=== PATIENT | female | born 1985 | race Caucasian/White ===

== ENCOUNTER 2018-05-20 14:05 | Emergency (ER) | payer BC, MEDICAID ==
[~2018-05-20] VITALS: Ht 167.6 cm; Wt 90.0 kg
[2018-05-20] MEDS ORDERED: ACETAMINOPHEN 325MG TABLET PO STA (15:00)
[2018-05-20] MEDS ORDERED: SODIUM CHLORIDE 0.9% 1,000 ML IV ONE (15:00)
[2018-05-20] MEDS ORDERED: DEXAMETHASONE 10 MG/ML VIAL IV ONE (15:00)
[2018-05-20] MEDS ORDERED: KETOROLAC 30MG/ML VIAL IV ONE (15:15)
[2018-05-20] MEDS ORDERED: CEFTRIAXONE 1 G PREMIX 50 ML IV ONE (15:15)
[2018-05-20 18:01] VITALS: BP 134/72
== END 2018-05-20 18:20 | disposition home or self-care (01) ==
LOC: ER 14:05
DX: J03.90 Acute tonsillitis, unspecified (principal); R03.0 Elevated blood-pressure reading, without diagnosis of hypertension
CPT/HCPCS: 87070; 87430; 96365; 96366; 96375; 99283; J0696; J1100; J1885; J7030

== ENCOUNTER 2018-08-22 17:28 | Emergency (ER) | payer SELFPAY ==
[~2018-08-22] VITALS: Ht 160 cm; Wt 91.0 kg
[2018-08-22 23:30] VITALS: BP 147/75
== END 2018-08-22 23:30 | disposition home or self-care (01) ==
LOC: ER 17:28
DX: S20.01XA Contusion of right breast, initial encounter (principal); F17.200 Nicotine dependence, unspecified, uncomplicated; X58.XXXA Exposure to other specified factors, initial encounter; Y93.89 Activity, other specified; Y92.89 Other specified places as the place of occurrence of the external cause; Y99.8 Other external cause status
CPT/HCPCS: 71045; 81025; 93005; 99283

== ENCOUNTER 2021-10-11 12:33 | Inpatient (IN) | payer MEDICARE ==
[~2021-10-11] VITALS: Ht 160 cm; Wt 97.5 kg
[~2021-10-11 12:33] MED LIST: ETOMIDATE 2MG/ML 10ML VIAL IV ONE; SODIUM CHLORIDE 0.9% 10ML VIAL ONE; VECURONIUM BROMIDE 10 MG/VIAL IV ONE
[2021-10-11] MEDS ORDERED: CEFTRIAXONE 2 G PREMIX 50 ML IV ONE (13:15)
[2021-10-11] MEDS ORDERED: METRONIDAZOLE 500 MG PREMIX 100 ML IV ONE (13:15)
[2021-10-11 13:24] LABS: BASOPHILS % 0.3 % (0.0-2.0); EOSINOPHILS % 0.5 % (0.0-5.0); HEMATOCRIT. 40.2 % (36.0-48.0); HEMOGLOBIN. 13.1 g/dL (12.0-16.0); LYMPHOCYTES % 12.2 % (20.0-50.0); MEAN CORPUSCULAR HEMOGLOBIN 27.6 pg (28.0-32.0); MEAN CORPUSCULAR VOLUME 84.7 fL (81.0-99.0); MEAN PLATELET VOLUME 8.9 fl (7.4-10.4); MONOCYTES % 6.7 % (2.0-8.0); NEUTROPHILS % 80.3 % (40.0-76.0); PLATELET 246 x1000/uL (130-400); RED BLOOD CELL COUNT 4.74 mill/uL (4.2-5.4)
[2021-10-11 13:26] LABS: CLARITY URINE CLEAR (CLEAR); COLOR URINE YELLOW (YELLOW); KETONES URINE NEGATIVE (NEGATIVE); LEUKOCYTE ESTERASE URINE 1+ (NEGATIVE); NITRITE URINE NEGATIVE (NEGATIVE); OCCULT BLOOD URINE NEGATIVE (NEGATIVE); PH URINE 5.5 (4.5-8.0); PROTEIN URINE TRACE (NEGATIVE)
[2021-10-11] MEDS ORDERED: CEFTRIAXONE 2 G in DEXTROSE 5% WATER 50 ML IV NR (13:30)
[2021-10-11 13:33] LABS: CHLORIDE 105 mEq/L (98-107)
[2021-10-11] MEDS ORDERED: MORPHINE SULFATE 4 MG/ML CPJ (NOT FOR IM USE) IV ONE (13:45)
[2021-10-11] MEDS ORDERED: ONDANSETRON HCL 4MG/2ML INJ IV ONE (13:45)
[2021-10-11] MEDS ORDERED: IOHEXOL-300 100 ML BOTTLE ONE (13:58)
[2021-10-11] MEDS ORDERED: PROPOFOL 10MG/ML 100ML 100 ML IV ONE ×2 (15:00→15:45)
[2021-10-11] MEDS ORDERED: SUCCINYLCHOLINE CHLORIDE 200MG/10ML IV ONE (15:00)
[2021-10-11] MEDS ORDERED: DEXAMETHASONE 10 MG/ML VIAL IV ONE (15:00)
[2021-10-11] MEDS ORDERED: ETOMIDATE 2MG/ML 10ML VIAL IV ONE (15:00)
[2021-10-11] MEDS ORDERED: MIDAZOLAM HCL 100 MG in DEXT 5% WATER 80 ML IV ONE (15:45)
[2021-10-11] MEDS ORDERED: FENTANYL 2500MCG/250ML PMX 250 ML IV PRN ×2 (17:15)
[2021-10-11] MEDS: MIDAZOLAM 100MG/100ML PMX 100 ML IV PRN (19:23)
[2021-10-11] MEDS ORDERED: DEXAMETHASONE 10 MG/ML VIAL IV NR (20:30)
[2021-10-11] MEDS ORDERED: CEFTRIAXONE 2 G in DEXTROSE 5% WATER 50 ML IV SCH (21:00)
[2021-10-11] MEDS: METRONIDAZOLE 500 MG PREMIX 100 ML IV SCH (21:26)
[2021-10-11] MEDS ORDERED: DEXT 5%/0.45% NACL 1000ML 1,000 ML IV ONE (23:15)
[2021-10-12] VITALS (21 sets, daily range): BP systolic 100–145; BP diastolic 49–88
[2021-10-12] MEDS ORDERED: NOREPINEPHRINE 8MG/250ML PMX 250 ML IV NR (00:23)
[2021-10-12] MEDS: MIDAZOLAM 100MG/100ML PMX 100 ML IV PRN (00:39)
[2021-10-12 05:55] LABS: BG BASE EXCESS -2.6 mmol/L (-2.0-2.0); BG CARBOXYHEMOGLOBIN 0.2 % (0.5-1.5); BG DEOXYHEMOGLOBIN 1.7 % (0.0-5.0); BG FRACTION INSPIRED OXYGEN 40; BG HCO3 ACT 20.9 mmol/L (22.0-26.0); BG METHEMOGLOBIN 0.3 % (0.0-1.5); BG OXYGEN SATURATION 98.3 % (92.0-98.5); BG OXYHEMOGLOBIN 97.8 % (94.0-97.0); BG PCO2 32.5 mmHg (35.0-45.0); BG PH 7.426 (7.350-7.450); BG SAMPLE SITE RIGHT RADIAL; BG TOTAL HEMOGLOBIN 13.5 g/dL (12.0-18.0); BG VENT MODE VENT - AC
[2021-10-12] MEDS: METRONIDAZOLE 500 MG PREMIX 100 ML IV SCH (06:05)
[2021-10-12 06:06] LABS: MEAN CORPUSCULAR HEMOGLOBIN 27.9 pg (28.0-32.0); MEAN CORPUSCULAR VOLUME 83.4 fL (81.0-99.0); MEAN PLATELET VOLUME 9.1 fl (7.4-10.4); PLATELET 312 x1000/uL (130-400); RED BLOOD CELL COUNT 4.68 mill/uL (4.2-5.4); RED CELL DISTRIBUTION WIDTH 15.7 % (11.6-14.6)
[2021-10-12 06:16] LABS: CHLORIDE 104 mEq/L (98-107)
[2021-10-12 06:29] LABS: PLATELET ESTIMATE NORMAL
[2021-10-12] MEDS ORDERED: FENTANYL 2500MCG/250ML PMX 250 ML IV PRN (11:30)
[2021-10-12] MEDS ORDERED: PROPOFOL 10MG/ML 100ML 100 ML IV PRN (12:00)
[2021-10-12] MEDS ORDERED: DIPHENHYDRAMINE 50MG/ML VIAL IV PRN (12:15)
[2021-10-12] MEDS ORDERED: CLONIDINE 0.1MG TABLET PO PRN (12:15)
[2021-10-12] MEDS ORDERED: ONDANSETRON HCL 4MG/2ML INJ IV PRN (12:15)
[2021-10-12] MEDS ORDERED: ACETAMINOPHEN 325MG TABLET PO PRN (12:15)
[2021-10-12] MEDS ORDERED: METRONIDAZOLE 500 MG PREMIX 100 ML IV SCH (14:00)
[2021-10-12] MEDS: PROPOFOL 10MG/ML 100ML 100 ML IV PRN (14:53)
[2021-10-12] MEDS: DEXAMETHASONE 10 MG/ML VIAL IV SCH ×2 (15:10→17:53)
[2021-10-12] MEDS: SODIUM CHLORIDE 0.9% 1,000 ML IV SCH (15:11)
[2021-10-12] MEDS: ENOXAPARIN 40MG/0.4ML SYR SUBCUT SCH (15:12)
[2021-10-12] MEDS: AMPICILLIN SOD/SULBACTAM NA 3 G in SODIUM CHLORIDE 0.9% 100 ML IV SCH ×2 (16:12→20:47)
[2021-10-12] MEDS: IPRATROPIUM/ALBUTEROL 0.5-3(2.5)MG/3ML NEB HHN SCH (20:17)
[2021-10-12] MEDS: FENTANYL 2500MCG/250ML PMX 250 ML IV PRN (23:33)
[2021-10-13] VITALS (45 sets, daily range): BP systolic 94–153; BP diastolic 35–103
[2021-10-13] MEDS: DEXAMETHASONE 10 MG/ML VIAL IV SCH ×5 (00:29→23:59)
[2021-10-13] MEDS: PROPOFOL 10MG/ML 100ML 100 ML IV PRN ×2 (01:13→17:07)
[2021-10-13] MEDS: IPRATROPIUM/ALBUTEROL 0.5-3(2.5)MG/3ML NEB HHN SCH ×4 (02:14→19:43)
[2021-10-13] MEDS: AMPICILLIN SOD/SULBACTAM NA 3 G in SODIUM CHLORIDE 0.9% 100 ML IV SCH ×4 (02:59→23:58)
[2021-10-13] MEDS: SODIUM CHLORIDE 0.9% 1,000 ML IV SCH ×3 (05:09→20:07)
[2021-10-13 06:21] LABS: BASOPHILS % 0.1 % (0.0-2.0); HEMATOCRIT. 34.8 % (36.0-48.0); HEMOGLOBIN. 11.5 g/dL (12.0-16.0); LYMPHOCYTES % 8.6 % (20.0-50.0); MEAN CORPUSCULAR HEMOGLOBIN 28.3 pg (28.0-32.0); MEAN CORPUSCULAR VOLUME 85.5 fL (81.0-99.0); MEAN PLATELET VOLUME 9.4 fl (7.4-10.4); MONOCYTES % 2.7 % (2.0-8.0); NEUTROPHILS % 88.6 % (40.0-76.0); PLATELET 240 x1000/uL (130-400); RED BLOOD CELL COUNT 4.06 mill/uL (4.2-5.4); RED CELL DISTRIBUTION WIDTH 16.1 % (11.6-14.6)
[2021-10-13 06:37] LABS: CHLORIDE 106 mEq/L (98-107)
[2021-10-13 07:28] LABS: BG BASE EXCESS 5.2 mmol/L (-2.0-2.0); BG CARBOXYHEMOGLOBIN 0.3 % (0.5-1.5); BG DEOXYHEMOGLOBIN 4.2 % (0.0-5.0); BG HCO3 ACT 30.4 mmol/L (22.0-26.0); BG METHEMOGLOBIN 0.1 % (0.0-1.5); BG OXYGEN SATURATION 95.8 % (92.0-98.5); BG OXYHEMOGLOBIN 95.4 % (94.0-97.0); BG PCO2 47.1 mmHg (35.0-45.0); BG PH 7.427 (7.350-7.450); BG PO2 80.4 mmHg (75.0-100.0); BG SAMPLE SITE RIGHT RADIAL; BG TOTAL HEMOGLOBIN 11.7 g/dL (12.0-18.0); BG VENT MODE VENT - AC
[2021-10-13] MEDS: PANTOPRAZOLE SODIUM 40 MG/VIAL IV SCH (09:22)
[2021-10-13] MEDS: ENOXAPARIN 40MG/0.4ML SYR SUBCUT SCH (13:21)
[2021-10-14] VITALS (37 sets, daily range): BP systolic 82–145; BP diastolic 45–76
[2021-10-14] MEDS: ENOXAPARIN 30MG/0.3ML SYR SUBCUT SCH ×2 (01:03→13:55)
[2021-10-14] MEDS: IPRATROPIUM/ALBUTEROL 0.5-3(2.5)MG/3ML NEB HHN SCH ×4 (01:23→20:00)
[2021-10-14] MEDS: PROPOFOL 10MG/ML 100ML 100 ML IV PRN ×2 (02:24→15:45)
[2021-10-14] MEDS: DEXAMETHASONE 10 MG/ML VIAL IV SCH (06:17)
[2021-10-14] MEDS: AMPICILLIN SOD/SULBACTAM NA 3 G in SODIUM CHLORIDE 0.9% 100 ML IV SCH ×3 (06:17→17:24)
[2021-10-14 06:44] LABS: CHLORIDE 108 mEq/L (98-107)
[2021-10-14 07:28] LABS: BASOPHILS % 0.1 % (0.0-2.0); EOSINOPHILS % 0.1 % (0.0-5.0); HEMATOCRIT. 31.4 % (36.0-48.0); HEMOGLOBIN. 10.3 g/dL (12.0-16.0); LYMPHOCYTES % 10.9 % (20.0-50.0); MEAN CORPUSCULAR HEMOGLOBIN 28.3 pg (28.0-32.0); MEAN CORPUSCULAR VOLUME 85.9 fL (81.0-99.0); MEAN PLATELET VOLUME 9.7 fl (7.4-10.4); MONOCYTES % 2.9 % (2.0-8.0); PLATELET 228 x1000/uL (130-400); RED BLOOD CELL COUNT 3.65 mill/uL (4.2-5.4); RED CELL DISTRIBUTION WIDTH 16.1 % (11.6-14.6)
[2021-10-14 09:08] LABS: BG BASE EXCESS 1.1 mmol/L (-2.0-2.0); BG CARBOXYHEMOGLOBIN 0.3 % (0.5-1.5); BG FRACTION INSPIRED OXYGEN 35; BG HCO3 ACT 26.7 mmol/L (22.0-26.0); BG METHEMOGLOBIN 0.3 % (0.0-1.5); BG OXYHEMOGLOBIN 97.4 % (94.0-97.0); BG PCO2 46.3 mmHg (35.0-45.0); BG PH 7.378 (7.350-7.450); BG PO2 115.5 mmHg (75.0-100.0); BG SAMPLE SITE LEFT RADIAL; BG VENT MODE VENT - SIMV
[2021-10-14] MEDS: PANTOPRAZOLE SODIUM 40 MG/VIAL IV SCH (09:49)
[2021-10-14] MEDS: FENTANYL 2500MCG/250ML PMX 250 ML IV PRN (10:15)
[2021-10-14] MEDS: SODIUM CHLORIDE 0.9% 1,000 ML IV SCH ×2 (12:18→13:50)
[2021-10-15] VITALS (36 sets, daily range): BP systolic 104–157; BP diastolic 45–96
[2021-10-15] MEDS: ENOXAPARIN 30MG/0.3ML SYR SUBCUT SCH ×2 (00:35→12:23)
[2021-10-15] MEDS: AMPICILLIN SOD/SULBACTAM NA 3 G in SODIUM CHLORIDE 0.9% 100 ML IV SCH ×4 (00:35→18:15)
[2021-10-15] MEDS: PROPOFOL 10MG/ML 100ML 100 ML IV PRN (01:29)
[2021-10-15] MEDS: IPRATROPIUM/ALBUTEROL 0.5-3(2.5)MG/3ML NEB HHN SCH ×4 (01:37→20:44)
[2021-10-15] MEDS: SODIUM CHLORIDE 0.9% 1,000 ML IV SCH (03:56)
[2021-10-15] MEDS: PANTOPRAZOLE SODIUM 40 MG/VIAL IV SCH (10:28)
[2021-10-15] MEDS ORDERED: RACEPINEPHRINE 2.25% 0.5ML NEB VIAL HHN NR (11:00)
[2021-10-15] MEDS ORDERED: NALOXONE HCL 0.4MG/ML VIAL IV PRN (11:15)
[2021-10-15] MEDS ORDERED: DEXAMETHASONE 10 MG/ML VIAL IV NR (12:45)
[2021-10-15] MEDS: MORPHINE SULFATE 2 MG/ML CPJ (NOT FOR IM USE) IV PRN (13:46)
[2021-10-15] MEDS ORDERED: RACEPINEPHRINE 2.25% 0.5ML NEB VIAL HHN PRN (15:00)
[2021-10-16] VITALS (24 sets, daily range): BP systolic 120–157; BP diastolic 52–101
[2021-10-16] MEDS: IPRATROPIUM/ALBUTEROL 0.5-3(2.5)MG/3ML NEB HHN SCH ×4 (00:34→21:17)
[2021-10-16 05:38] LABS: HEMATOCRIT. 35.5 % (36.0-48.0); HEMOGLOBIN. 11.7 g/dL (12.0-16.0); MEAN CORPUSCULAR HEMOGLOBIN 27.6 pg (28.0-32.0); MEAN CORPUSCULAR VOLUME 83.5 fL (81.0-99.0); MEAN PLATELET VOLUME 9.2 fl (7.4-10.4); PLATELET 237 x1000/uL (130-400); RED BLOOD CELL COUNT 4.25 mill/uL (4.2-5.4); RED CELL DISTRIBUTION WIDTH 14.9 % (11.6-14.6)
[2021-10-16 05:55] LABS: CHLORIDE 98 mEq/L (98-107)
[2021-10-16] MEDS: AMPICILLIN SOD/SULBACTAM NA 3 G in SODIUM CHLORIDE 0.9% 100 ML IV SCH ×4 (06:18→11:46)
[2021-10-16] MEDS: ENOXAPARIN 30MG/0.3ML SYR SUBCUT SCH ×2 (06:20→18:26)
[2021-10-16 08:15] LABS: PLATELET ESTIMATE NORMAL
[2021-10-16] MEDS: PANTOPRAZOLE SODIUM 40 MG/VIAL IV SCH (09:30)
[2021-10-16] MEDS ORDERED: PHENOL/SODIUM PHENOLATE 1.4% SRPAY 177ML MM PRN (13:00)
[2021-10-16] MEDS: MORPHINE SULFATE 2 MG/ML CPJ (NOT FOR IM USE) IV PRN (18:27)
[2021-10-17] VITALS: BP 120/71
[2021-10-17] MEDS: AMPICILLIN SOD/SULBACTAM NA 3 G in SODIUM CHLORIDE 0.9% 100 ML IV SCH ×6 (01:50→23:10)
[2021-10-17] MEDS: IPRATROPIUM/ALBUTEROL 0.5-3(2.5)MG/3ML NEB HHN SCH ×4 (02:36→21:12)
[2021-10-17 04:00] VITALS: BP 115/56
[2021-10-17] MEDS: ENOXAPARIN 30MG/0.3ML SYR SUBCUT SCH ×2 (06:58→17:13)
[2021-10-17 07:52] LABS: BASOPHILS % 0.1 % (0.0-2.0); EOSINOPHILS % 0.9 % (0.0-5.0); HEMATOCRIT. 38.2 % (36.0-48.0); HEMOGLOBIN. 12.8 g/dL (12.0-16.0); LYMPHOCYTES % 19.3 % (20.0-50.0); MEAN CORPUSCULAR HEMOGLOBIN 27.7 pg (28.0-32.0); MEAN CORPUSCULAR VOLUME 82.7 fL (81.0-99.0); MEAN PLATELET VOLUME 8.9 fl (7.4-10.4); NEUTROPHILS % 74.7 % (40.0-76.0); PLATELET 265 x1000/uL (130-400); RED BLOOD CELL COUNT 4.62 mill/uL (4.2-5.4); RED CELL DISTRIBUTION WIDTH 15.3 % (11.6-14.6)
[2021-10-17 08:00] VITALS: BP 136/76
[2021-10-17 08:02] LABS: CHLORIDE 96 mEq/L (98-107)
[2021-10-17] MEDS: PANTOPRAZOLE SODIUM 40 MG/VIAL IV SCH (08:45)
[2021-10-17] MEDS ORDERED: POTASSIUM CHLORIDE 20MEQ/PACKET PO NR (09:15)
[2021-10-17] MEDS: MORPHINE SULFATE 2 MG/ML CPJ (NOT FOR IM USE) IV PRN (09:36)
[2021-10-17 12:00] VITALS: BP 112/62
[2021-10-17 16:00] VITALS: BP 116/56
[2021-10-17 20:00] VITALS: BP 132/85
[2021-10-18] VITALS: BP 121/75
[2021-10-18] MEDS: IPRATROPIUM/ALBUTEROL 0.5-3(2.5)MG/3ML NEB HHN SCH ×4 (01:22→20:41)
[2021-10-18 04:00] VITALS: BP 136/89
[2021-10-18] MEDS: ENOXAPARIN 30MG/0.3ML SYR SUBCUT SCH ×2 (05:27→17:05)
[2021-10-18] MEDS: AMPICILLIN SOD/SULBACTAM NA 3 G in SODIUM CHLORIDE 0.9% 100 ML IV SCH ×4 (05:27→23:40)
[2021-10-18 08:14] VITALS: BP 134/78
[2021-10-18] MEDS: PANTOPRAZOLE SODIUM 40 MG/VIAL IV SCH (08:50)
[2021-10-18 11:54] VITALS: BP 115/66
[2021-10-18 15:41] VITALS: BP 137/62
[2021-10-18 20:00] VITALS: BP 92/57
[2021-10-19] VITALS (7 sets, daily range): BP systolic 92–111; BP diastolic 54–70
[2021-10-19] MEDS: IPRATROPIUM/ALBUTEROL 0.5-3(2.5)MG/3ML NEB HHN SCH ×4 (01:29→20:29)
[2021-10-19] MEDS: AMPICILLIN SOD/SULBACTAM NA 3 G in SODIUM CHLORIDE 0.9% 100 ML IV SCH ×3 (05:27→17:34)
[2021-10-19] MEDS: ENOXAPARIN 30MG/0.3ML SYR SUBCUT SCH ×2 (05:28→17:33)
[2021-10-19] MEDS: FAMOTIDINE 20MG/2ML VIAL IV SCH ×2 (08:55→21:37)
[2021-10-20] VITALS: BP 107/69
[2021-10-20] MEDS: AMPICILLIN SOD/SULBACTAM NA 3 G in SODIUM CHLORIDE 0.9% 100 ML IV SCH ×4 (00:22→18:00)
[2021-10-20] MEDS: IPRATROPIUM/ALBUTEROL 0.5-3(2.5)MG/3ML NEB HHN SCH ×3 (01:18→14:59)
[2021-10-20 04:00] VITALS: BP 112/60
[2021-10-20] MEDS: ENOXAPARIN 30MG/0.3ML SYR SUBCUT SCH ×2 (06:28→18:00)
[2021-10-20 08:00] VITALS: BP 101/59
[2021-10-20] MEDS: FAMOTIDINE 20MG/2ML VIAL IV SCH (09:24)
[2021-10-20 12:00] VITALS: BP 97/65
[2021-10-20] MEDS ORDERED: AMOX1TAB16 MT (14:34)
[2021-10-20 16:00] VITALS: BP 108/64
[2021-10-20 16:11] VITALS: BP 109/61
[2021-10-20] MEDS ORDERED: FAMOTIDINE 20MG TABLET PO SCH (21:00)
== END 2021-10-20 18:10 | disposition home or self-care (01) | DRG 720 ==
LOC: ER 12:57 → CANBEDREQ 19:05 → MICUNO 10-12 10:36 → 7EST 10-16 14:25
PROVIDERS: ADMIT Internal Medicine; ATTEND Internal Medicine
PROC: 5A1945Z Respiratory Ventilation, 24-96 Consecutive Hours (ICD-10-PCS; principal; 2021-10-11)
PROC: 0BH17EZ Insertion of Endotracheal Airway into Trachea, Via Natural or Artificial Opening (ICD-10-PCS; 2021-10-11)
DX: A41.9 Sepsis, unspecified organism (principal); J96.01 Acute respiratory failure with hypoxia; R65.21 Severe sepsis with septic shock; E44.0 Moderate protein-calorie malnutrition; K12.2 Cellulitis and abscess of mouth; E66.9 Obesity, unspecified; Z20.822 Contact with and (suspected) exposure to COVID-19; J36 Peritonsillar abscess; R73.9 Hyperglycemia, unspecified; T38.0X5A Adverse effect of glucocorticoids and synthetic analogues, initial encounter; Z78.1 Physical restraint status; Y92.89 Other specified places as the place of occurrence of the external cause; Z68.38 Body mass index [BMI] 38.0-38.9, adult
CPT/HCPCS: 36415; 36600; 70491; 71045; 74018; 80048; 80053; 81003; 82375; 82805; 83036; 83605; 84145; 84478; 85025; 87426; 92610; 93005; 93970; 94002; 94003; 94640; 99291; C9113; J0295; J0696; J1100; J1650; J2250; J2270; J2704; J3010; J3490; J7050; J7060; Q9967

== ENCOUNTER 2024-04-05 00:23 | Emergency (ER) | payer MEDICAID, MEDICARE ==
[~2024-04-05] VITALS: Ht 160 cm; Wt 100.0 kg
[~2024-04-05 00:23] MED LIST changes: +AMOX1TAB16 MT; -ETOMIDATE 2MG/ML 10ML VIAL IV ONE; -SODIUM CHLORIDE 0.9% 10ML VIAL ONE; -VECURONIUM BROMIDE 10 MG/VIAL IV ONE
[2024-04-05 00:31] VITALS: O2SAT 98
[2024-04-05 00:32] VITALS: BP 161/98; PULSE 84; RESP 18; TEMP 98.8; O2SAT 100
[2024-04-05] MEDS ORDERED: ACET-2708 MT (00:46)
[2024-04-05] MEDS ORDERED: AMOX-494 MT (00:46)
== END 2024-04-05 00:57 | disposition home or self-care (01) ==
LOC: ER 00:23
DX: K02.9 Dental caries, unspecified (principal)
CPT/HCPCS: 99283